=== PATIENT | male | born 1975 | race Caucasian/White ===

== ENCOUNTER 2017-11-14 08:18 | Inpatient (IN) | payer OTHER ==
[~2017-11-14] VITALS: Ht 172.7 cm; Wt 65.8 kg
[2017-11-14 16:20] VITALS: BP 127/82
--- NOTE | 2017-11-14 16:20 | NUR ---
Pre-admission Pre-admission assessment performed in the intake department of [facility]. Pt is A&O and ambulatory with a steady gait. He does not appear intoxicated and answers questions appropriately. Pt does appear somewhat anxious. Vitals: B/P 127/82, HR 93m, RR 18, O2 sat 98%, T 98.0, pain 0/10. He reports that he has been drinking one 12 pack of beer per day, using methamphetamine 3grams IV per day, and intermittent marijuana use. Last drank one beer today and last used meth yesterday. Pt is stable and [facility].
--- NOTE | 2017-11-14 16:35 | NUR ---
ADMISSION NOTE ALLERGY-NKA STATUS-FULL CODE HEIGHT-5'8 WEIGHT-145LBS PCP- NONE Patient is 47 year old female admitted at 16:35 for supervised ETOH( BEER), Methamphetamine,Marijuana withdrawal. Patient is alert and oriented X4, full code, with NKA. On fall and seizure precaution. Upon arrival skin assessment done and skin noted intact. Patient denies any past medical history. Patient is able to respond to questions, cooperative during the admission interview but patient has a avoidant eye contact, flight of ideas, emotional volatility. Denies suicidal or homicidal ideation at this time and denies any history. Patient states his both brothers are using methamphetamine no family history of medical disease. Patient refused PNA vaccine. Patient reported smoking cigarettes 1 pack a daily. Patient reported "He is living with his parents and 2 kids". Patient reported history of sharing needles. Patient reports that common withdrawal symptoms include anxiety, agitation, restlessness, laziness. TREATMENT HISTORY Patient reported " He was in a treatment center in 2013 at [facility] and completed his 45 days of treatment. Patient denies any history of 5150. Patient has a history of DUI. Patient states that he has been seeking treatment because "My life is falling a part and I need to get my life back. I cannot live like this anymore. I hate the way I am living and feeling." Patient reported there is a specific trigger for his to relapse, " because i get bored, i just work all the time and have nothing interested interesting in my life, so I easily start using and drinking ." Patient states that now he is ready to focus on recovery and is open to the 12 steps program. 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 Pt was in the hospital for couple of months." OVER DOSE HISTORY Patient denies any history of seizure, denies SOB, chest pain DT, blackouts. Patient reported history of overdose from Heroin in 1995 and my friend called 911 and " I stayed over night in the emergency room." Substance use history per patient report: 1) ETOH(BEER) - Patient reports his last drink was today at 1300 12 oz of beer PO. Patient states he has been drinking 12 pack beer daily for 2 years. Patient reports he has been drinking for last 20 years on and off. 2. METHAMPHETAMINE-Patient reports last use was yesterday (11/13/17) at 0800 1/2 GM IV. Patient reports he has been using 2gm IV daily for 2 years. Patient reports he has been using for last 20 years on and off. 3.MARIJUANA- Patient reports last use was yesterday (11/13/17) at 0800 2 to 3 puffs. Patient reports he has been smoking 1 gm daily for 2 years. Patient reports he has been using for 20 years on and off. Educated patient about plan of care including detox, group therapy and discharge planning. Encourage patient to be open honest and verbalized support for patient in his recovery. Encourage patient to notify staff with any concerns. Patient was oriented to unit, room and call lights, oriented to unit routines and activity groups, and provided with hygiene supplies. Patient has been educated about plan of care and case management, as well as unit protocols. Safety measures in place, side rails up x2 bed locked in low position, call light within reach. Will cont to monitor. Addendum: 11/14/17 at 1919 by SOM GUAJARDO LVN Correction- 42 year old male.
[2017-11-14] MEDS ORDERED: LOPERAMIDE HCL 2 MG CAPSULE PO PRN ×2 (17:15)
[2017-11-14] MEDS ORDERED: LORAZEPAM 1 MG TABLET PO PRN ×2 (17:15)
[2017-11-14] MEDS ORDERED: MIRALAX 17 GM POWD.PACK PO PRN (17:15)
[2017-11-14] MEDS ORDERED: ONDANSETRON ODT 4 MG TAB.RAPDIS SL PRN (17:15)
[2017-11-14] MEDS ORDERED: ONDANSETRON 4 MG/2 ML VIAL IM PRN (17:15)
[2017-11-14] MEDS ORDERED: HYDROXYZINE PAMOATE 25 MG CAPSULE PO PRN (17:15)
[2017-11-14] MEDS ORDERED: THIAMINE HCL 200 MG/2 ML VIAL IM ONE (17:15)
[2017-11-14] MEDS ORDERED: diphenhydrAMINE 50 MG CAPSULE PO PRN (17:15)
[2017-11-14] MEDS ORDERED: ACETAMINOPHEN 325 MG TABLET PO PRN (17:15)
[2017-11-14] MEDS ORDERED: LORAZEPAM 2 MG/1 ML VIAL IM PRN (17:15)
[2017-11-14] MEDS ORDERED: CLONIDINE HCL 0.1 MG TABLET PO PRN (17:15)
[2017-11-14] MEDS ORDERED: MAG HYDROX/AL HYDROX/SIMETH 30 ML LIQUID UDC PO PRN (17:15)
[2017-11-14] MEDS ORDERED: MAGNESIUM HYDROXIDE 30 ML LIQUID UDC PO PRN (17:15)
[2017-11-14] MEDS ORDERED: IBUPROFEN 600 MG TABLET PO PRN (17:15)
[2017-11-14 17:34] LABS: *AMPHETAMINE, URINE POSITIVE (NEGATIVE); *BARBITURATE, URINE NEGATIVE (NEGATIVE); *CANNABINOID, URINE POSITIVE (NEGATIVE); *COCCAINE, URINE NEGATIVE (NEGATIVE); *OPIATE, URINE NEGATIVE (NEGATIVE); *PHENCYCLIDINE SCREEN,URINE NEGATIVE (NEGATIVE)
--- NOTE | 2017-11-14 19:18 | NUR ---
END OF SHIFT NOTE Gave report to night nurse 42 year old male admitted for ETOH,Methamphetamine, Marijuana withdrawal. Patient currently not on any taper but PRN'S available for increased s/s of withdrawal. Patient currently resting in his room comfortably. Breathing normal no SOB noted. Skin intact warm and dry to touch. All safety measures in place, call light within reach. Patient endorsed to night nurse in stable condition.
--- NOTE | 2017-11-14 19:30 | NUR ---
START OF SHIFT Pt is a 42 y/o male admitted today for ETOH and meth withdrawal. Pt will start a 5 day Ativan taper tomorrow and has PRN Ativan available at this time. Last CIWA 4 and no PRNs administered during day shift. Upon assessment pt presents with anxiety, agitation, lethargy, fatigue, elevated HR, flushed skin, poor eye contact, and poor concentration. Safety measures in place. Call light within reach. Will continue to monitor.
[2017-11-14 20:00] VITALS: BP 117/71
--- NOTE | 2017-11-14 20:00 | NUR ---
CIWA 8 Pt presents with anxiety, agitation, lethargy, fatigue, elevated HR, flushed skin, poor eye contact, and poor concentration. Pt states, "I feel fine...I don't want any meds right now." Educated benefits/risks of Ativan, pt verbalized understanding.
[2017-11-14 20:15] LABS: BASOPHILS # (AUTO) 0.1 K/uL (0.0-8.0); EOSINOPHILS # (AUTO) 0.2 K/uL (0.0-0.7); EOSINOPHILS % (AUTO) 3.4 % (0.0-7.0); HEMATOCRIT 49.8 % (36.7-47.1); HEMOGLOBIN 16.6 g/dL (12.5-16.3); LYMPHOCYTES # (AUTO) 2.2 K/uL (20.0-40.0); LYMPHOCYTES % (AUTO) 36.9 % (20.5-51.5); MEAN CORPUSCULAR HEMOGLOBIN 31.5 uug (23.8-33.4); MEAN CORPUSCULAR HGB CONC 33 g/dL (32.5-36.3); MEAN CORPUSCULAR VOLUME 94.4 fL (73.0-96.2); MONOCYTES # (AUTO) 0.3 K/uL (2.0-10.0); MONOCYTES % (AUTO) 5.4 % (0.0-11.0); NEUTROPHILS # (AUTO) 3.2 K/uL (1.8-8.9); NEUTROPHILS % (AUTO) 53.3 % (38.5-71.5); PLATELET COUNT (AUTO) 183 K/uL (152-348); RED BLOOD CELL COUNT(AUTO) 5.27 MIL/uL (4.06-5.63)
[2017-11-14 20:37] LABS: ALANINE AMINOTRANSFERASE 79 U/L (16-63); ALKALINE PHOSPHATASE 94 U/L (50-136); AMYLASE 63 U/L (25-115); ASPARTATE AMINOTRANSFERASE 49 U/L (15-37); BILIRUBIN,TOTAL 0.3 mg/dL (0.2-1.0); CARBON DIOXIDE 32 mmol/L (21-32); CHLORIDE 101 mmol/L (98-107); CREATININE 0.8 mg/dL (0.6-1.3); GLUCOSE 106 mg/dL (74-106); LIPASE 182 U/L (73-393); MAGNESIUM 2.3 mg/dL (1.8-2.4); POTASSIUM 4.3 mmol/L (3.5-5.1); TOTAL PROTEIN, SERUM 7.6 g/dL (6.4-8.2); UREA NITROGEN, BLOOD 7 mg/dL (7-18)
[2017-11-14 20:38] LABS: ETHANOL < 3 MG/DL (0-0)
[2017-11-15] VITALS: BP 133/84
--- NOTE | 2017-11-15 | NUR ---
CIWA DEFERRED Pt laying in bed with eyes closed, CIWA deferred, to be assessed when pt is awake per orders. Respirations even and unlabored. Safety measures in place. Call light within reach. Will continue to monitor.
[2017-11-15 04:00] VITALS: BP 135/82
--- NOTE | 2017-11-15 07:22 | NUR ---
END OF SHIFT Pt is a 42 y/o male admitted today for ETOH and meth withdrawal. Pt will start a 5 day Ativan taper today and had PRN Ativan available. Pt presented with anxiety, agitation, lethargy, fatigue, elevated HR, flushed skin, poor eye contact, and poor concentration. No medications administered. Pt reports, I dont want to take any medications. Educated pt about benefits/risks of medications, pt verbalized understanding. Last CIWA 8. Pt slept 11 hours. Intake 1091 ml, void x 1, stool x 0. Safety measures in place. Call light within reach. Pts needs have been met. Endorsed to day shift nurse.
--- NOTE | 2017-11-15 07:40 | NUR ---
START OF SHIFT NOTE Received report from night nurse, 42 year old male admitted for ETOH withdrawal and patient placed on 5 days Ativan taper staring this morning. Per endorsement patient did not receive any PRN'S, Last CIWA -8, slept for 11 hours. Received patient alert awake poor eye contact, appears flushed and bilateral hand tremors, sweats, anxious, agitated, restless, easily distracted, poor concentration. Educated patient regarding the importance of attending groups activities. Patient verbalized understanding. All safety measures in place, Call light within reach. Will cont to monitor.
[2017-11-15 08:00] VITALS: BP 128/83
--- NOTE | 2017-11-15 08:00 | NUR ---
CIWA ASSESSMENT CIWA score -12. Patient has a disheveled appearance and flat effect and reported increased in anxiety, agitation, restless, light headed, Patient is schedule to start Ativan taper. Will cont to monitor.
[2017-11-15] MEDS: MULTIVITAMINS,THERAPEUTIC TABLET PO SCH (08:23)
[2017-11-15] MEDS: LORAZEPAM 1 MG TABLET PO SCH ×4 (08:23→21:00)
[2017-11-15] MEDS: THIAMINE HCL 100 MG TABLET PO SCH (08:23)
[2017-11-15] MEDS: FOLIC ACID 1 MG TABLET PO SCH (08:23)
[2017-11-15] MEDS ORDERED: TUBERCULIN,PURIF.PROT.DERIV. 5 TU/0.1 ML TEST ID ONE (09:00)
[2017-11-15] MEDS ORDERED: 5 DAY TAPER OF LORAZEPAM -SERENITY PROTOCOL PO PRN (09:00)
[2017-11-15 12:00] VITALS: BP 125/84
--- NOTE | 2017-11-15 12:00 | NUR ---
CIWA ASSESSMENT CIWA score -13. Patient continues to exhibit s/s of withdrawal such as anxiety, agitation, restless, sweats, bilateral hand tremors, light headed. Will cont to monitor.
[2017-11-15 16:00] VITALS: BP 126/75
--- NOTE | 2017-11-15 16:00 | NUR ---
CIWA ASSESSMENT Patient is lying in his room, continues to exhibits s/s of withdrawal such as anxiety, agitation, restless, numbness and tingling, bilateral hands tremors noted, sweats. Per patient " I do not feel like to walk or to do anything all i want is to sleep i am feeling so tired". WA-13. All safety measures in place.
--- NOTE | 2017-11-15 19:11 | NUR ---
END OF SHIFT NOTE Gave report to night nurse 42 year old male admitted for ETOH,Methamphetamine, Marijuana withdrawal. Patient started on Ativan taper tolerating well. No s/s of adverse reaction noted. Patient continues to to exhibits s/s of withdrawal such as anxiety, agitation diaphoresis, light headedness. Patient received all of his scheduled medications. No PRN'S given during shift. Patient rested in his room most of the shift, encourage patient to attend group activities to learn new coping skills. Patient verbalized understanding. Breathing normal no SOB noted. Skin intact warm and dry to touch. Patient consumed 100% of his meals. Encourage PO fluids as tolerated. Last CIWA score was 13 at 1600. All safety measures in place, call light within reach. Patient endorsed to night nurse in stable condition.
--- NOTE | 2017-11-15 19:12 | NUR ---
Start of shift note Received report from day shift nurse. Pt is a 42 yo male, A+Ox4, presenting to [facility] for ETOH/Meth withdrawal. Pt noted to be anxious, agitated, and fatigued. Pt has HX of TB in 2004 which will be monitored during shift. Pt is on 5 day Ativan taper, tolerated well. Respirations even and unlabored. Will continue to monitor.
[2017-11-15 20:09] VITALS: BP 134/74
--- NOTE | 2017-11-15 21:59 | NUR ---
Ativan Held Scheduled Ativan held for sleep. Pt is resting well in bed. Respirations even and unlabored. Will continue to monitor.
--- NOTE | 2017-11-16 00:41 | NUR ---
V/S refused and CIWA deferred for sleep. Respirations even and unlabored. Will continue to monitor.
--- NOTE | 2017-11-16 04:09 | NUR ---
V/S refused and CIWA deferred for sleep. Respirations even and unlabored. Will continue to monitor.
--- NOTE | 2017-11-16 07:00 | NUR ---
End of shift note Pt was continuously noted with agitation, anxiety, and fatigue. Pt remained in room for majority of shift except to get food from kitchen and to go smoke on smoking patio. Pt remained cooperative and compliant with all aspects of treatment. Pt received chest x-ray to rule out TB and the result was negative. Pt was not given any PRN medications during shift. Pts 2100 dose of Ativan was held for sleep. Pt is on 5 day Ativan taper, tolerated well. Pt slept for a total of 11 HRS. Last CIWA: 12 @2008. Respirations even and unlabored. Will endorse to day shift nurse.
--- NOTE | 2017-11-16 07:27 | NUR ---
BEGINNING OF SHIFT Patient endorsement report received from shift supervisor film processing nurse, all pertinent information discussed. Patient admitted 11/14/2017. Patient with admitting Dx: etoh withdrawal. patient also with substance use of: methamphetamine, and marijuana. Patient currently with ongoing 5 day Ativan taper as ordered and is scheduled to begin day 2 of taper. As per shift supervisor film processing, uneventful, patient slept for 11 hours, received no PRN medications. Patient is awake, alert and oriented x4, educated regarding plan of care for the day and medication regimen. Safety measures are in place. call light with in reach, will monitor closely.
[2017-11-16 08:23] VITALS: BP 135/89
[2017-11-16] MEDS: MULTIVITAMINS,THERAPEUTIC TABLET PO SCH (08:25)
[2017-11-16] MEDS: LORAZEPAM 1 MG TABLET PO SCH ×3 (08:25→21:00)
[2017-11-16] MEDS: THIAMINE HCL 100 MG TABLET PO SCH (08:25)
[2017-11-16] MEDS: FOLIC ACID 1 MG TABLET PO SCH (08:25)
--- NOTE | 2017-11-16 09:00 | NUR ---
[facility] ASSESSMENT Patient is in room, appears disheveled, unkempt, and unshaven. Noted Isolative, encouraged participation in group therapies/sessions. Patient Noted with avoidant eye contact, has depressed and anxious mood. Patient was administered all scheduled morning medications as ordered. During assessment patient presented with: fine tremors, sweats, anxiety, agitation, decreased appetite, depression, difficulty concentrating, emotional volatility, generalized discomfort, and hypervigilance. Patient continues with ongoing 5 day Valium taper as ordered, and continues on day 2 of taper. patient encouraged to develop coping skills and utilization of non pharmacological interventions as needed. Encouraged increase in PO fluid intake as tolerated, will continue to monitor.
[2017-11-16 10:08] LABS: HEPATITIS B SURFACE AG Negative (Negative)
--- NOTE | 2017-11-16 12:18 | NUR ---
HEP C RESULTS Dr. Jesus notified of patients Hep C Results as per MD he will educate patient.
--- NOTE | 2017-11-16 13:00 | NUR ---
CIWA ASSESSMENT Patient continues to exhibit the following s/sx of withdrawal: fine tremors, sweats, anxiety, agitation, decreased appetite, depression, difficulty concentrating, emotional volatility, generalized discomfort, and hypervigilance. Safety measures in place. all needs met, will continue to monitor.
[2017-11-16 13:14] VITALS: BP 132/83
[2017-11-16 16:27] LABS: BILIRUBIN,TOTAL 0.2 mg/dL (0.2-1.0); CREATININE 0.8 mg/dL (0.6-1.3); POTASSIUM 3.9 mmol/L (3.5-5.1); TOTAL PROTEIN, SERUM 7.4 g/dL (6.4-8.2)
--- NOTE | 2017-11-16 17:00 | NUR ---
CIWA ASSESSMENT Patient continues to exhibit the following s/sx of withdrawal: fine tremors, sweats, anxiety, agitation, decreased appetite, depression, difficulty concentrating, emotional volatility, generalized discomfort, and hypervigilance. CIWA: [address] all needs met, will continue to monitor.
[2017-11-16 17:06] VITALS: BP 120/83
--- NOTE | 2017-11-16 19:01 | NUR ---
END OF SHIFT Patient alert and oriented x4, admitting Dx: etoh withdrawal, continues under close observation and continues on 5 day Ativan taper as ordered, currently on day 2 of taper. Appears disheveled, unkempt, and unshaven encouraged to self groom and maintain personal area. . Noted Isolative, encouraged participation in group therapies/sessions. Patient Noted with avoidant eye contact, has depressed and anxious mood. Patient provided with calming reassurance and non pharmacological interventions as needed. Received no PRN medications during shift. During shift patient presented with the following s/sx of withdrawal: fine tremors, sweats, anxiety, agitation, decreased appetite, depression, difficulty concentrating, emotional volatility, generalized discomfort, and hypervigilance, patient with last ciwa score of: 12. Safety measures are in place. Call light with in reach. Patient endorsed to night assistant nurse, all pertinent information was discussed.
--- NOTE | 2017-11-16 19:11 | NUR ---
Start of shift note Received report from day shift nurse. Pt is a 42 yo male, A+Ox4, presenting to [facility] for ETOH withdrawal. Pt noted to be fatigued, agitated, and anxious. Pt has HX of TB (2004) and HEP C+ which will be monitored during shift. Pt is on 5 day Ativan taper, tolerated well. Respirations even and unlabored. Will continue to monitor.
[2017-11-16 20:36] VITALS: BP 127/80
--- NOTE | 2017-11-16 20:37 | NUR ---
CIWA Assessment CIWA: 10. Pt noted with fine tremors, sweats, anxiety, and agitation. Respirations even and unlabored. Will continue to monitor.
--- NOTE | 2017-11-16 21:50 | NUR ---
Ativan Refusal Pt refused 2100 administration of Ativan 1mg stating, "I'm fine now, i will take my dose in the morning." Respirations even and unlabored. Will continue to monitor.
--- NOTE | 2017-11-17 00:12 | NUR ---
V/S refused and CIWA deferred for sleep. Respirations even and unlabored. Will continue to monitor.
--- NOTE | 2017-11-17 04:56 | NUR ---
V/S refused and CIWA deferred for sleep. Respirations even and unlabored. Will continue to monitor.
--- NOTE | 2017-11-17 07:00 | NUR ---
End of shift note Pt was continuously noted with fatigue, agitation, and anxiety. Pt remained in room for majority of shift except to get food from kitchen and to go smoke on smoking patio. Pt remained cooperative and compliant with all aspects of treatment. Pt was not given any PRN medications during shift. Pt is on 5 day Ativan taper, tolerated well. Pt refused 2100 dose of Ativan stating I feel fine, I will take my next dose in the morning. Pt slept for a total of 10 HRS. Last CIWA: 10 @1999. Respirations even and unlabored. Will endorse to day shift nurse.
--- NOTE | 2017-11-17 07:46 | NUR ---
BEGINNING OF SHIFT Patient continues under close observation. As per retail shift supervisor patient with last CIWA score of: 10, patient refused 2100 dose of Ativan detox medication as per retail shift supervisor, will educate regarding refusal of detox medication. Patient received no PRN medications. Patient endorsement report received from retail shift supervisor nurse, all pertinent information discussed. Patient with admitting Dx: etoh withdrawal. patient also with substance use of: methamphetamine, and marijuana. Continues on 5 day Ativan taper as ordered and is scheduled to begin day 3 of taper. Patient received awake, alert and oriented x4, educated regarding plan of care for the day and medication regimen. Safety measures are in place. call light with in reach, will monitor closely.
[2017-11-17 08:41] VITALS: BP 116/77
[2017-11-17] MEDS: FOLIC ACID 1 MG TABLET PO SCH (08:43)
[2017-11-17] MEDS: LORAZEPAM 1 MG TABLET PO SCH ×2 (08:43→20:20)
[2017-11-17] MEDS: MULTIVITAMINS,THERAPEUTIC TABLET PO SCH (08:43)
[2017-11-17] MEDS: THIAMINE HCL 100 MG TABLET PO SCH (08:43)
--- NOTE | 2017-11-17 09:45 | NUR ---
CIWA ASSESSMENT Patient Noted with poor eye contact, has depressed and anxious affect. Patient was administered all scheduled morning medications as ordered, no episode refusing detox medication. During assessment patient presented with: fine tremors, sweats, anxiety, agitation, decreased appetite, depression, difficulty concentrating, emotional volatility, generalized discomfort, and hypervigilance, CIWA score of: 10. Patient continues with ongoing 5 day Valium taper as ordered, and continues on day 3 of taper. will continue to monitor.
[2017-11-17 12:43] VITALS: BP 130/91
--- NOTE | 2017-11-17 13:00 | NUR ---
CIWA ASSESSMENT Patient continues to exhibit the following s/sx of withdrawal: fine tremors, sweats, anxiety, agitation, decreased appetite, depression, difficulty concentrating, emotional volatility, generalized discomfort, and hypervigilance, CIWA score of: 10. Will continue to monitor.
[2017-11-17 16:51] VITALS: BP 137/94
--- NOTE | 2017-11-17 19:06 | NUR ---
END OF SHIFT Admitting Dx: ETOH withdrawal, continues under very close observation, patient with no episodes of refusing detox medication. Patient educated regarding etoh withdrawal, with good verbal understanding. Patient seen by MD during shift. Patient continues on 5 Day Ativan taper as ordered, continues on day 3 of taper. Appears disheveled, unkempt, and unshaven. Room noted odorous, patient with poor regards to hygiene. Encouraged to self groom and maintain personal area. Noted Isolative, encouraged participation in group therapies/sessions, patient noted with more willingness to participate. Received no PRN medications during shift. During shift patient presented with the following s/sx of withdrawal: fine tremors, sweats, anxiety, agitation, decreased appetite, depression, difficulty concentrating, emotional volatility, generalized discomfort, and hypervigilance, patient with last ciwa score of: 10. Encouraged to increase PO fluid intake as tolerated. Safety measures are in place. Call light with in reach. Patient endorsed to night supervisor nurse, all pertinent information was discussed.
--- NOTE | 2017-11-17 19:10 | NUR ---
Start of shift note Received report from day shift nurse. Pt is a 42 yo male, A+Ox4, presenting to [facility] for ETOH/Meth withdrawal. Pt noted to be fatigued, agitated, and anxious. Pt has HX of TB (2004) and HEP C which will be monitored during shift. Pt is on 5 day Ativan taper, tolerated well. Respirations even and unlabored. Will continue to monitor.
[2017-11-17 20:15] VITALS: BP 125/77
--- NOTE | 2017-11-17 20:15 | NUR ---
CIWA Assessment CIWA: 9. Pt noted with fine tremors, sweat on forehead, anxiety, and agitation. Respirations even and unlabored. Will continue to monitor.
--- NOTE | 2017-11-18 00:58 | NUR ---
V/S refused and CIWA deferred for sleep. Respirations even and unlabored. Will continue to monitor.
--- NOTE | 2017-11-18 04:57 | NUR ---
V/S refused and CIWA deferred for sleep. Respirations even and unlabored. Will continue to monitor.
--- NOTE | 2017-11-18 07:00 | NUR ---
End of shift note Pt was continuously noted with fatigue, anxiety, and agitation. Pt remained in room for majority of shift except to get food from kitchen and to go smoke on smoking patio. Pt remained compliant and cooperative with all aspects of treatment. Pt was not given any PRN medications during shift. Pt is on 5 day Ativan taper, tolerated well. Pt slept for a total of 10 HRS. Last CIWA: 9 @2000. Respirations even and unlabored. Will endorse to day shift nurse.
--- NOTE | 2017-11-18 07:33 | NUR ---
BEGINNING OF SHIFT Patient endorsement report received from assistant shift supervisor nurse. Patient continues under close observation. As per assistant shift supervisor patient with last CIWA score of: 9. Patient received no PRN medications. Patient with admitting Dx: etoh withdrawal. patient also with substance use of: methamphetamine, and marijuana. Continues on 5 day Ativan taper as ordered and is scheduled to begin day 4 of taper. Patient received in bed with eyes closed, respirations are even and unlabored, responsive to verbal stimuli. will educated regarding plan of care for the day and medication regimen. Safety measures are in place. call light with in reach, will monitor closely.
[2017-11-18 08:21] VITALS: BP 111/73
[2017-11-18] MEDS: MULTIVITAMINS,THERAPEUTIC TABLET PO SCH (08:39)
[2017-11-18] MEDS: THIAMINE HCL 100 MG TABLET PO SCH (08:39)
[2017-11-18] MEDS: FOLIC ACID 1 MG TABLET PO SCH (08:39)
--- NOTE | 2017-11-18 09:00 | NUR ---
WITHDRAWAL SYMPTOMS Patient exhibited the following s/sx of withdrawal: tremors that can be felt,mild sweats, anxiety, agitation, decreased appetite, depression, difficulty concentrating, emotional volatility, generalized discomfort, and hypervigilance, CIWA score of: 9. will continue to monitor.
[2017-11-18 12:27] VITALS: BP 127/94
--- NOTE | 2017-11-18 13:00 | NUR ---
WITHDRAWAL SYMPTOMS Patient Noted to continue exhibiting the following s/sx of withdrawal: tremors that can be felt,mild sweats, anxiety, agitation, decreased appetite, depression, difficulty concentrating, emotional volatility, generalized discomfort, and hypervigilance, CIWA score of: 9. Encouraged patient to attend group therapies/sessions to learn new coping skills to prevent relapse, also encouraged diversional activities to alleviate anxiety, will continue to monitor.
[2017-11-18 17:18] VITALS: BP 132/86
--- NOTE | 2017-11-18 17:19 | NUR ---
WITHDRAWAL SYMPTOMS continues to exhibit the following s/sx of withdrawal: tremors that can be felt,mild sweats, anxiety, agitation, decreased appetite, depression, difficulty concentrating, emotional volatility, generalized discomfort, and hypervigilance, CIWA score of: 9. Will continue to monitor. Offered PRN medications as needed, but declined.
--- NOTE | 2017-11-18 19:03 | NUR ---
END OF SHIFT Monitored patient closely throughout shift. presented with the following s/sx of withdrawal: tremors that can be felt,mild sweats, anxiety, agitation, decreased appetite, depression, difficulty concentrating, emotional volatility, generalized discomfort, and hypervigilance, last CIWA score of: 9.Patient at times noted with flat affect and labile mood. Episodes of irritability and increase anxiety were noted during shift. Facial expression is sad and pre-occupied. Encouraged to express feeling as necessary, provided with non pharmacological interventions as needed. Noted Isolative at times, encouraged participation in group therapies/sessions, patient noted with more willingness to participate, no episodes of SI/HI. Seen By Dr. Jesus during shift. Received no PRN medications. Patient is scheduled to be discharged tomorrow morning, to [facility], noted self motivated towards sobriety, verbalized " i am ready to move on to the next step and do this" Encouraged to increase PO fluid intake as tolerated. Safety measures are in place. Call light with in reach. Patient endorsed to shift stacker nurse, all pertinent information was discussed.
--- NOTE | 2017-11-18 19:30 | NUR ---
Start of Shift Pt admitted 11/14/17 for medically managed withdrawal from ETOH, Methamphetamine salts. Pt originally on 5 day Ativan taper but mocified and to be d/c'd on 11/19 in am. Pt room found in unkempt state, with empty food and drink container, clothes found on strewn about. Pt unshaven, with poor eye contact, appears fearful/suspicious. Pt w c/o anxiety, agitation over d/c, change in treatment, accepting of suggestions for anxiety and sleep meds for bedtime. Hand tremors to touch. Denies any HI/SI, no H/A, B/A's, or dyspepsia. Will monitor for duration of shift, promptly attending to all s/sx's w/d or distress.
[2017-11-18 20:00] VITALS: BP 118/85
--- NOTE | 2017-11-18 20:00 | NUR ---
CIWA Score. CIWA of 6, aeb sweats, tremors to touch, anxiety and agitation, HR > 100.
--- NOTE | 2017-11-18 21:00 | NUR ---
PRN Note, On assessment pt had requested meds for sleep and anxiety. However on entering room during evening med pass, pt exclaimed "Oh, I don't need those pills". Benedryl 50mg PO and Clonidine 0.1mg PO returned to [facility]
[2017-11-19] VITALS: BP 118/84
--- NOTE | 2017-11-19 | NUR ---
Midnight Rounds VS's obtained/stable, CIWA deferred r/t pt somnalance. Will continue to monitor and promptly attend to all s/sx's w/d or distress.
[2017-11-19 04:00] VITALS: BP 112/77
--- NOTE | 2017-11-19 04:00 | NUR ---
0400 Rounds VS's obtained/stable, CIWA deferred r/t pt somnalance. RR 16, even and nonlabored. Will continue to monitor and promptly attend to all s/sx's w/d or distress.
--- NOTE | 2017-11-19 07:19 | NUR ---
End of Shift Endorsement given to day nurse. 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 Pt originally on 5 day Ativan taper but modified and to be d/c'd today in am. Pt anxious/restless over d/c this am and transfer to rehab, first accepting, then refusing medications for sleep and anxiety in evening. Pt appears with blunted affect, blocking, suspicious/paranoid. Also present with sweats and tremors to touch. Pt unshaven and disheveled, room remains cluttered, Pt slept for 10 hours with 1 L intake, 1 void and no BM's.
--- NOTE | 2017-11-19 07:40 | NUR ---
START OF SHIFT Rcvd endorse from ongoing nurse, met client in the hallway, about to take a shower, he presents with anxious mood, flat affect. He stated, "I'm feeling anxious, I think is because I'll be leaving today to my rehab place." He denies any BAKER, nausea, suicidal or homicidal ideations. Client completed 3modofied 4 day Ativan taper. Last CIWA 6 @ 2000. Client had an uneventful night. He is scheduled for discharge this am. Seizure precautions in place. Call light within reach. Will continue to monitor.
[2017-11-19 08:25] VITALS: BP 142/90
[2017-11-19 08:26] VITALS: BP 142/90
[2017-11-19] MEDS: FOLIC ACID 1 MG TABLET PO SCH (08:26)
[2017-11-19] MEDS: THIAMINE HCL 100 MG TABLET PO SCH (08:26)
--- NOTE | 2017-11-19 08:26 | NUR ---
PRN Clonidine 0.1mg PO, Vistaril 25mg PO administered for agitation and anxiety respectively. Deep breathing techniques demonstrated, client requires reinforcement, he stated, "My brain is all over the place, to many scatter thoughts." Call light within reach.
[2017-11-19] MEDS: MULTIVITAMINS,THERAPEUTIC TABLET PO SCH (08:27)
--- NOTE | 2017-11-19 09:26 | NUR ---
Reassess PRN Clonidine 0.1mg, Vistaril 25mg, client states, "I feel somewhat less anxious, but my anxiety is just always there, to tell you the truth." Discuss discharge instructions with client, he verbalized understanding. Call light within reach.
--- NOTE | 2017-11-19 09:40 | NUR ---
Discharge Note Client discharged in stable condition with all valuable, and belongings. Pt denies SI/HI. To [facility] via private car.
== END 2017-11-19 09:40 | disposition other institution (70) | DRG 895 ==
LOC: SRC 16:08
PROVIDERS: ADMIT Family Medicine Addiction Medicine; ATTEND Family Medicine Addiction Medicine
PROC: HZ2ZZZZ Detoxification Services for Substance Abuse Treatment (ICD-10-PCS; principal; 2017-11-14)
PROC: HZ41ZZZ Group Counseling for Substance Abuse Treatment, Behavioral (ICD-10-PCS; 2017-11-17)
DX: F10.230 Alcohol dependence with withdrawal, uncomplicated (principal); F15.23 Other stimulant dependence with withdrawal; Y90.0 Blood alcohol level of less than 20 mg/100 ml; B19.20 Unspecified viral hepatitis C without hepatic coma; F17.210 Nicotine dependence, cigarettes, uncomplicated; F12.90 Cannabis use, unspecified, uncomplicated; R76.11 Nonspecific reaction to tuberculin skin test without active tuberculosis; Z20.5 Contact with and (suspected) exposure to viral hepatitis; R74.0 Nonspecific elevation of levels of transaminase and lactic acid dehydrogenase [LDH]
CPT/HCPCS: 36415; 70030-TC; 71045; 80307; 80324; 80349; 83690; 83735; 85025; 86580; 86592; 86705; 86803; 87340; 87806; A4663; G0480; J3411; Q0163